=== PATIENT | female | born 2000 | race Caucasian/White ===

== ENCOUNTER 2021-11-07 18:25 | Emergency (ER) | payer OTHER ==
[2021-11-07 19:13] VITALS: BP 108/61; PULSE 88; TEMP 98.7; BMI 26.5
== END 2021-11-07 20:20 | disposition home or self-care (01) ==
LOC: FER 18:25
DX: S50.01XA Contusion of right elbow, initial encounter (principal); V49.9XXA Car occupant (driver) (passenger) injured in unspecified traffic accident, initial encounter
CPT/HCPCS: 73070-TC-RT-FY; 99283-25